=== PATIENT | male | born 1930 | race Caucasian/White ===

== ENCOUNTER 2017-10-25 05:40 | Emergency (ER) | payer MEDICARE, OTHER ==
[2017-10-25 06:29] LABS: BASOPHILS # (AUTO) 0.02 x10^3/uL (0-0.1); BASOPHILS % (AUTO) 0 % (0-1); EOSINOPHILS # (AUTO) 0.01 x10^3/uL (0-0.4); EOSINOPHILS % (AUTO) 0 % (1-7); LYMPHOCYTES # (AUTO) 0.84 x10^3/uL (1-3.4); LYMPHOCYTES % (AUTO) 14 % (22-44); MD NO; MEAN CORPUSCULAR HEMOGLOBIN 30.9 pg (27.5-34.5); MEAN PLATELET VOLUME 6.9 fL (7.4-10.4); MONOCYTES # (AUTO) 0.78 x10^3/uL (0.2-0.8); MONOCYTES % (AUTO) 13 % (2-9); NEUTROPHILS # (AUTO) 4.22 x10^3/uL (1.8-6.8); NEUTROPHILS % (AUTO) 72 % (42-75); PLATELET COUNT 193 x10^3/uL (130-400); RED BLOOD COUNT 4.54 x10^6/uL (4.38-5.82)
[2017-10-25 06:42] LABS: ALANINE AMINOTRANSFERASE 23 U/L (12-78); ALBUMIN 4.1 g/dL (3.4-5.0); ANION GAP 10 mmol/L (5-15); CALCIUM 9.3 mg/dL (8.5-10.1); CHLORIDE 110 mmol/L (98-107); CREATININE 1.11 mg/dL (0.7-1.3)
[2017-10-25 06:46] LABS: ALKALINE PHOSPHATASE 68 U/L (45-117); BILIRUBIN,TOTAL 3.2 mg/dL (0.2-1.0); TOTAL PROTEIN 7.9 g/dL (6.4-8.2); TROPONIN I < 0.015 ng/mL (0.000-0.045)
[2017-10-25 11:54] LABS: AMPHETAMINE SCREEN, URINE Negative (Negative); BARBITURATE SCREEN, URINE Negative (Negative); BENZODIAZEPINE SCREEN, URINE Negative (Negative); CANNABINOID SCREEN, URINE Positive (Negative); COCAINE SCREEN, URINE Negative (Negative); METHADONE SCREEN, URINE Negative (Negative); OPIATE SCREEN, URINE Negative (Negative)
[2017-10-25] MEDS ORDERED: ACETAMINOPHEN 500 MG TABLET PO ONE (13:30)
[2017-10-25] MEDS ORDERED: ACETAMINOPHEN 325 MG TABLET PO ONE (13:30)
[2017-10-25] MEDS ORDERED: ACETAMINOPHEN 500 MG TABLET ONE (13:31)
[2017-10-25] MEDS ORDERED: PLEASE ENTER HEIGHT AND WEIGHT MC SCH (14:00)
[2017-10-25 15:05] VITALS: BP 137/65
== END 2017-10-25 18:14 | disposition home or self-care (01) ==
LOC: ED 08:54
DX: F01.51 Vascular dementia, unspecified severity, with behavioral disturbance (principal); M10.9 Gout, unspecified; I48.91 Unspecified atrial fibrillation; Z91.83 Wandering in diseases classified elsewhere
CPT/HCPCS: 36415; 70450; 80053; 80307; 82140; 84484; 85025; 93005; 99285